=== PATIENT | female | born 1960 | race Caucasian/White ===

== ENCOUNTER 2019-04-22 15:11 | Emergency (ER) | payer BC ==
[~2019-04-22] VITALS: Ht 162.6 cm; Wt 79.1 kg
[2019-04-22 15:23] VITALS: Ht 162.6 cm; Wt 79.1 kg
[2019-04-22] MEDS ORDERED: XANAX1 MG PO (15:25)
[2019-04-22] MEDS ORDERED: HYDROCHLOROTHIA25 MG PO (15:26)
[2019-04-22] MEDS ORDERED: NASOCORT (15:26)
[2019-04-22] MEDS ORDERED: EFFEXOR75 MG PO (15:26)
[2019-04-22] MEDS ORDERED: SYNTHROID25 MCG (15:26)
[2019-04-22] MEDS ORDERED: POTASSIUM99 M1 (15:26)
[2019-04-22] MEDS ORDERED: MAGNESIUM (15:27)
[2019-04-22] MEDS ORDERED: VOLTAREN75 MG PO (15:27)
[2019-04-22] MEDS ORDERED: ROBAXIN500 MG (15:27)
[2019-04-22] MEDS ORDERED: AMBIEN10 MG PO (15:27)
[2019-04-22 15:48] LABS: BASOPHILS 0.4 % (0-2); EOSINOPHILS 3.4 % (0-7); HEMATOCRIT 41.6 % (36.0-48.0); IMMATURE GRANULOCYTES 0.2 % (0-5); LYMPHOCYTES 33.3 % (15-50); MCH 31.8 pg (26.0-34.0); MCHC 33.7 g/dL (31.0-37.0); MCV 94.5 fL (80.0-100.0); MONOCYTES 11.8 % (2-11); NEUTROPHILS 50.9 % (40-80); PLATELET COUNT 354 10x3/uL (130-400); RDW 12.8 % (11.5-14.5)
[2019-04-22 16:28] LABS: APTT 24.5 SECONDS (22.8-39.4); INR 0.99 (0.85-1.17); PROTIME 12.6 SECONDS (11.6-15.0)
[2019-04-22 16:41] LABS: ALBUMIN 3.4 g/dL (3.4-5.0); ALKALINE PHOSPHATASE 93 U/L (46-116); ALT (SGPT) 56 U/L (10-68); BILIRUBIN - TOTAL 0.26 mg/dL (0.2-1.3); CALC OSMOLALITY 287 mosm/kg (275-300); CALCIUM 9.1 mg/dL (8.5-10.1); CARBON DIOXIDE 31.1 mmol/L (21.0-32.0); CHLORIDE - SERUM 105 mmol/L (98-107); CREATININE - SERUM 0.7 mg/dL (0.6-1.3); GLUCOSE 89 mg/dL (74-106); POTASSIUM - SERUM 4.2 mmol/L (3.5-5.1); PROTEIN - SERUM 6.8 g/dL (6.4-8.2); SODIUM 143 mmol/L (136-145); UREA NITROGEN 24 mg/dL (7-18); eGFR NON AFRICAN AMERICAN > 90 mL/min (90-120)
[2019-04-22 17:06] LABS: CKMB 1.3 U/L (0.0-3.6); CREATINE KINASE 93 UL (21-215); THYROID STIMULATING HORMONE 0.92 uIU/mL (0.36-3.74)
[2019-04-22 17:11] LABS: TROPONIN-I < 0.017 ng/mL (0.000-0.060)
[2019-04-22] MEDS ORDERED: VALTREX1000 MG PO (17:14)
[2019-04-22] MEDS ORDERED: PREDNISONE50 MG PO (17:14)
[2019-04-22] MEDS ORDERED: ERYTHROMYCIN OPT1 GM EACH EYE (17:15)
[2019-04-22 17:29] VITALS: BP 114/73
== END 2019-04-22 17:30 | disposition home or self-care (01) ==
LOC: D.ER 15:11
PROVIDERS: Family Medicine
DX: G51.0 Bell's palsy (principal)